=== PATIENT | female | born 1975 | race Caucasian/White ===

== ENCOUNTER 2025-01-08 20:35 | Emergency (ER) | payer OTHER ==
[~2025-01-08] VITALS: Ht 160 cm; Wt 97.0 kg
[2025-01-08 20:39] VITALS: O2SAT 99
[2025-01-09] MEDS: CYCLOBENZAPRINE 10MG TABLET PO ONE (00:15)
[2025-01-09] MEDS: KETOROLAC 30MG/ML VIAL IM ONE (00:15)
[2025-01-09] MEDS: LIDOCAINE 5% PATCH TOP SCH (00:15)
[2025-01-09] MEDS ORDERED: CYCL10TA21 MT (01:52)
[2025-01-09] MEDS ORDERED: KETO10TA2 MT (01:52)
[2025-01-09] MEDS ORDERED: LIDO700A15 TP (01:57)
[2025-01-09 04:20] VITALS: BP 132/84; PULSE 87; RESP 14; TEMP 36.8; O2SAT 99
== END 2025-01-09 04:23 | disposition home or self-care (01) ==
LOC: ER 20:35
DX: G89.11 Acute pain due to trauma (principal); M54.50 Low back pain, unspecified; M48.02 Spinal stenosis, cervical region; J45.909 Unspecified asthma, uncomplicated; E11.9 Type 2 diabetes mellitus without complications; F32.A Depression, unspecified; Z79.899 Other long term (current) drug therapy; Z90.49 Acquired absence of other specified parts of digestive tract
CPT/HCPCS: 99285; 72040; 72100; 72125; 96372; J1885; Z7610